=== PATIENT | female | born 1965 | race Caucasian/White ===

== ENCOUNTER 2021-05-28 06:39 | Emergency (ER) | payer OTHER ==
[2021-05-28] MEDS ORDERED: NORCO 5-325 TA1 EACH PO (09:46)
[2021-05-28] MEDS ORDERED: TOBRADEX EYE DRO5 ML OS (09:46)
== END 2021-05-28 10:19 | disposition home or self-care (01) ==
LOC: FER 06:39
DX: H20.9 Unspecified iridocyclitis (principal)
CPT/HCPCS: J0780; J1200; J1885; J7030

== ENCOUNTER 2021-08-09 14:44 | Emergency (ER) | payer OTHER ==
[~2021-08-09 14:44] MED LIST: NORCO 5-325 TA1 EACH PO; TOBRADEX EYE DRO5 ML OS
[2021-08-09] MEDS ORDERED: BACLOFEN 10MG T10 MG PO (18:10)
== END 2021-08-09 18:27 | disposition home or self-care (01) ==
LOC: FER 14:44
DX: S09.90XA Unspecified injury of head, initial encounter (principal); M25.512 Pain in left shoulder; W07.XXXA Fall from chair, initial encounter; Y92.89 Other specified places as the place of occurrence of the external cause; Y99.0 Civilian activity done for income or pay
CPT/HCPCS: 70450; 72125; 73030; 96372; J1100; J1885

== ENCOUNTER 2021-08-15 15:12 | Emergency (ER) | payer OTHER ==
[~2021-08-15 15:12] MED LIST changes: +BACLOFEN 10MG T10 MG PO
[2021-08-15 19:47] LABS: BILIRUBIN NEGATIVE (NEGATIVE); BLOOD NEGATIVE Ery/uL (NEGATIVE); CLARITY HAZY (CLEAR); COLOR YELLOW (YELLOW); GLUCOSE (U) NORMAL (NORMAL); LEUKOCYTES TRACE Leu/uL (NEGATIVE); NITRITE NEGATIVE (NEGATIVE); PROTEIN NEGATIVE (NEGATIVE); SPECIFIC GRAVITY 1.015 (1.001-1.030); UROBILINOGEN 0.2 mg/dL (0.2-1.0); pH 7.5 (5.0-9.0)
[2021-08-15 19:48] LABS: BASOPHIL 0.5 % (0-2); EOSINOPHIL 2.8 % (0-5); HCT 38.9 % (37.0-47.0); HGB 12.5 g/dl (12.5-16.0); LYMPHOCYTE 32.4 % (15-48); MCH 31.7 pg (25.0-31.0); MCHC 32.1 g/dL (32.0-36.0); MCV 98.7 fL (78.0-100.0); MONOCYTE 7.7 % (0-12); MPV 8.8 fL (6.0-9.5); NEUTROPHIL 56.3 % (41-80); NRBC 0; PLT 236 K/uL (150-400); RBC 3.94 M/uL (4.20-5.40); RDW 13.1 % (11.5-14.0); WBC 6.4 K/uL (4.0-10.5)
[2021-08-15 19:54] LABS: AMORPHOUS PHOSPHATE CRYSTALS MODERATE; BACTERIA 1+
[2021-08-15 20:08] LABS: BUN/CREAT RATIO (CALC) 27.7 RATIO; CREATININE 0.94 mg/dL (0.51-0.95); POTASSIUM 4.1 mmol/L (3.5-5.1)
[2021-08-15] MEDS ORDERED: BACTRIM DS TAB1 EACH PO (21:55)
== END 2021-08-15 22:20 | disposition home or self-care (01) ==
LOC: FER 15:12
PROVIDERS: Nurse Practitioner Family
DX: N39.0 Urinary tract infection, site not specified (principal)
CPT/HCPCS: 36415; 70450; 80048; 81001; 85025; 87076; 87088